=== PATIENT | female | born 1955 | race Caucasian/White ===

== ENCOUNTER 2017-02-20 12:32 | Emergency (ER) | payer BC ==
[2017-02-20 10:33] LABS: BASOPHILS 0.2 %; BASOPHILS ABSOLUTE 0.03 10/3/uL (0.0-0.16); EOSINOPHILS 1.1 %; EOSINOPHILS ABSOLUTE 0.14 10/3/uL (0.0-0.53); HEMATOCRIT 42.9 % (36.0-48.0); HEMOGLOBIN 14.7 g/dL (12.0-16.0); IMMATURE GRANULOCYTES 0.3 %; IMMATURE GRANULOCYTES ABSOLUTE 0.04 10/3/uL (0.0-0.11); LYMPHOCYTES 21.2 %; LYMPHOCYTES ABSOLUTE 2.63 10/3/uL (0.67-4.30); MEAN CORPUS HGB CONC 34.3 g/dL (32.0-36.0); MEAN CORPUSCULAR HEMOGLOB 30.4 pg (26.0-34.0); MEAN CORPUSCULAR VOLUME 88.6 fL (80-100); MEAN PLATELET VOLUME 11.7 fL (9.2-13.0); MONOCYTES 7.7 %; MONOCYTES ABSOLUTE 0.95 10/3/uL (0.21-1.20); NEUTROPHILS 69.5 %; NEUTROPHILS ABSOLUTE 8.61 10/3/uL (2.02-8.40); PLATELET COUNT 226 10/3/uL (150-400); RBC DISTRIBUTION WIDTH 14.5 % (12.0-16.0); RED CELL COUNT 4.84 10/6/uL (4.0-5.6)
[2017-02-20 10:35] LABS: ER CBC TAT 0 Hrs 08 Mins; MANUAL DIFF NO %; WHITE BLOOD CELLS 12.4 10/3/uL (4.5-10.5)
[2017-02-20 10:48] LABS: A/G RATIO 1.5 (0.7-1.9); ALBUMIN 4.4 G/DL (3.5-5.0); ALKALINE PHOSPHATASE 130 U/L (45-117); BUN (BLOOD UREA NITROGEN) 24 MG/DL (6-23); CALCIUM, SERUM 9.3 MG/DL (8.5-10.4); CHLORIDE, SERUM 109 MMOL/L (96-112); CO2 (CARBON DIOXIDE) 24 MMOL/L (24-34); CREATININE 1.34 MG/DL (0.55-1.02); GFR AFRICAN AMERICAN 50 ML/MIN (>=60); GFR NON AFRICAN AMERICAN 43 ML/MIN (>=60); GLUCOSE, SERUM 101 MG/DL (60-99); POTASSIUM, SERUM 3.8 MMOL/L (3.5-5.3); SGOT(AST) 18 U/L (5-40); SGPT(ALT) 22 U/L (5-65); SODIUM, SERUM 142 MMOL/L (135-148); TOTAL BILIRUBIN 0.5 MG/DL (0-1.2); TOTAL PROTEIN 7.4 G/DL (6.0-8.5)
[2017-02-20 11:02] LABS: TROPONIN I <0.02 NG/ML (<0.05)
[~2017-02-20 12:32] MED LIST: ASAB PO; ASABAYER PO; BUPROBAN150 MG PO; LIPITOR40 PO; LOP25 PO; TOPXL25 PO; ZOCOR40 PO
[2017-02-20 12:37] LABS: ASCORBIC ACID (UR NOT ORDER) NEG (NEG); BILIRUBIN, URINE NEGATIVE (NEG); ER URINALYSIS TAT 0 Hrs 13 Mins; KETONE, URINE NEGATIVE (NEG); LEUKOCYTE ESTERASE(NOT OR TRACE (NEG); NITRITE (URINE) NEG (NEG); WBC (NOT ORDERED) (RFLEX) 5 (0-5)
[2017-02-24] MEDS ORDERED: WELLSR150 PO (11:20)
[2017-02-24] MEDS ORDERED: NORV5 PO (11:21)
[2017-02-24] MEDS ORDERED: AVAPRO300 MG PO (11:21)
[2017-02-24] MEDS ORDERED: PLAVIX PO (11:22)
[2017-02-24] MEDS ORDERED: CRESTOR20 MG PO (11:22)
[2017-02-24] MEDS ORDERED: FLOMAX4 PO (11:23)
[2017-02-24] MEDS ORDERED: ZOFRAN4 PO (11:23)
[2017-02-24] MEDS ORDERED: PRILOSEC40 MG PO (11:24)
[2017-02-24] MEDS ORDERED: NORCO1 TAB PO (11:24)
[2017-02-24] MEDS ORDERED: BEN25 PO (11:25)
== END 2017-02-20 14:10 | disposition home or self-care (01) ==
LOC: ER 12:32
PROVIDERS: Hospitalist
DX: N13.2 Hydronephrosis with renal and ureteral calculous obstruction (principal); I10 Essential (primary) hypertension; Z95.5 Presence of coronary angioplasty implant and graft; Z88.8 Allergy status to other drugs, medicaments and biological substances; Z79.82 Long term (current) use of aspirin; Z79.899 Other long term (current) drug therapy
CPT/HCPCS: 74176; 80053; 81001; 83690; 84484; 85025; 93005; 96374; 99284; J1170; J2405

== ENCOUNTER 2017-02-27 12:38 | Day surgery (SDC) | payer BC ==
[2017-02-24 13:53] LABS: BASOPHILS 0.3 %; BASOPHILS ABSOLUTE 0.03 10/3/uL (0.0-0.16); EOSINOPHILS 1.9 %; EOSINOPHILS ABSOLUTE 0.17 10/3/uL (0.0-0.53); HEMATOCRIT 41.1 % (36.0-48.0); HEMOGLOBIN 13.7 g/dL (12.0-16.0); IMMATURE GRANULOCYTES 0.4 %; IMMATURE GRANULOCYTES ABSOLUTE 0.04 10/3/uL (0.0-0.11); LYMPHOCYTES 32.9 %; LYMPHOCYTES ABSOLUTE 2.99 10/3/uL (0.67-4.30); MANUAL DIFF NO %; MEAN CORPUS HGB CONC 33.3 g/dL (32.0-36.0); MEAN CORPUSCULAR HEMOGLOB 29.9 pg (26.0-34.0); MEAN CORPUSCULAR VOLUME 89.7 fL (80-100); MEAN PLATELET VOLUME 11.1 fL (9.2-13.0); MONOCYTES 7.7 %; NEUTROPHILS 56.8 %; NEUTROPHILS ABSOLUTE 5.16 10/3/uL (2.02-8.40); PLATELET COUNT 206 10/3/uL (150-400); RBC DISTRIBUTION WIDTH 14.3 % (12.0-16.0); RED CELL COUNT 4.58 10/6/uL (4.0-5.6); WHITE BLOOD CELLS 9.1 10/3/uL (4.5-10.5)
[2017-02-24 14:01] LABS: INTERNATIONAL NORMAL RATI 1.1 UNITS (-); PARTIAL THROMBO TIME 26.3 SEC (22.5-37.2); PROTIME (NOT ORD) 13.8 SEC (12.0-14.5)
[2017-02-24 14:13] LABS: BUN (BLOOD UREA NITROGEN) 19 MG/DL (6-23); CALCIUM, SERUM 8.8 MG/DL (8.5-10.4); CHLORIDE, SERUM 112 MMOL/L (96-112); CO2 (CARBON DIOXIDE) 24 MMOL/L (24-34); CREATININE 1.23 MG/DL (0.55-1.02); GFR AFRICAN AMERICAN 55 ML/MIN (>=60); GFR NON AFRICAN AMERICAN 48 ML/MIN (>=60); GLUCOSE, SERUM 115 MG/DL (60-99); POTASSIUM, SERUM 3.9 MMOL/L (3.5-5.3); SODIUM, SERUM 144 MMOL/L (135-148)
--- NOTE | ~2017-02-27 | OP ---
Record Of Operation [facility] [place] [address] [place]. [address] NAME: OLEKSANDR COHEN : 57 STATUS : [facility]#: [id number] AGE: 61 ADM/REG DATE : 02/27/17 MR#: [id number] REPORT SERV DATE: 02/28/17 DICTATED BY: GUANACO VERAS DATE: 02/27/17 REPORT STATUS : Draft TRANSCRIBED BY: MODL DATE: 02/27/17 DATE OF PROCEDURE: 02/27/2017 PREOPERATIVE DIAGNOSIS: Obstructing left mid ureteral stone. POSTOPERATIVE DIAGNOSIS: Obstructing left mid ureteral stone. PROCEDURE PERFORMED: Cystoscopy, left retrograde pyelogram, left flexible ureterorenoscopy, holmium laser stone fragmentation, and stent placement. SURGEON: Guanaco Veras M.D. ANESTHESIA: General. ESTIMATED BLOOD LOSS: 5 mL. INDICATIONS: This is a 61-year-old, white female, recently presenting to the office with intermittent left flank pain. She has been found to have an approximately 8 mm obstructing left mid ureteral calculus. After discussion of management options, we have elected to proceed with endoscopic fragmentation and stenting. Risks of infection, bleeding, failure, need for further surgery have been discussed. PROCEDURE IN DETAIL: The patient was taken to the operating room and underwent a general anesthetic. She was placed in a lithotomy position on the table, and her external genitalia were sterilely prepped and draped. The 22-Polish cystoscope sheath with 30-degree lens was inserted under direct vision per urethra with the aid of the video monitor. The bladder was inspected. The mucosa looked normal throughout. Single orifices were seen bilaterally. There was a very pronounced cystocele. The left orifice was cannulated with a bit of difficulty and a retrograde pyelogram was obtained showing a normal caliber ureter up to about the L3-4 level where stone was noted to be impacted and from this point proximal, the ureter was dilated, and the collecting system was moderately hydronephrotic. An 0.038 guidewire was advanced up into the kidney under fluoroscopic guidance, and an 11 x 13-Polish ureteral access sheath was advanced over the guidewire without difficulty up into the mid ureter. A second guidewire was placed through the access sheath and the sheath and obturator were then removed and reinserted over one of the two guidewires leaving the other in place as a safety wire. The flexible ureteroscope was then advanced up into the mid ureter through the access sheath. There was an obvious area where the stone had been impacted, and there was a bit of inflammatory change involving the ureteral mucosa. Proximal to this, the ureter was dilated. The scope was advanced up into the bladder, and a single large stone was noted in the mid pole calyx. The remainder of the collecting system and all the calices of the left kidney were inspected. There was one small stone adherent to the wall of the lower pole calyx which was broken loose. The 200 micron laser fiber was then used to fragment the single large stone into many small fragments in the 1 to 2 mm range or smaller. Reinspection of the collecting system did not reveal any large fragments remaining. At that point, the flexible scope was withdrawn down through the ureter with no significant findings noted. The cystoscope was replaced over the guidewire and a 6-Polish x Record Of Operation [address] [place]. [address] NAME: OLEKSANDR COHEN : 57 STATUS : [facility]#: [id number] AGE: 61 ADM/REG DATE : 02/27/17 MR#: [id number] REPORT SERV DATE: 02/28/17 DICTATED BY: GUANACO VERAS DATE: 02/27/17 REPORT STATUS : Draft TRANSCRIBED BY: YESSY DATE: 02/27/17 28 cm Pillow stent was placed over the guidewire and advanced up into the kidney such that the proximal end of the stent was observed to coil in the pelvis of the kidney under fluoroscopic guidance, and the distal end of the stent was visually observed to coil in the bladder following removal of the guidewire. The stent was left connected to a string dangle which was taped to the patient's inner thigh. The bladder was drained. All endoscopic apparatus was removed. The patient was taken to recovery in stable condition. DARBY/YESSY Guanaco Veras M.D. / [id number] CC: Dexter Johnson M.D.
[~2017-02-27 12:38] MED LIST changes: +AVAPRO300 MG PO; +BEN25 PO; +CRESTOR20 MG PO; +FLOMAX4 PO; +NORCO1 TAB PO; +NORV5 PO; +PLAVIX PO; +PRILOSEC40 MG PO; +WELLSR150 PO; +ZOFRAN4 PO
== END 2017-02-27 19:12 | disposition home or self-care (01) ==
LOC: SDC 12:38
PROVIDERS: Urology
PROC: 0T778DZ Dilation of Left Ureter with Intraluminal Device, Via Natural or Artificial Opening Endoscopic (ICD-10-PCS; 2017-02-27)
PROC: BT1F1ZZ Fluoroscopy of Left Kidney, Ureter and Bladder using Low Osmolar Contrast (ICD-10-PCS; 2017-02-27)
PROC: 0TF78ZZ Fragmentation in Left Ureter, Via Natural or Artificial Opening Endoscopic (ICD-10-PCS; principal; 2017-02-27 14:15)
DX: N13.2 Hydronephrosis with renal and ureteral calculous obstruction (principal); N13.4 Hydroureter; N81.10 Cystocele, unspecified; I25.10 Atherosclerotic heart disease of native coronary artery without angina pectoris; I10 Essential (primary) hypertension; I73.9 Peripheral vascular disease, unspecified; Z95.5 Presence of coronary angioplasty implant and graft; Z95.820 Peripheral vascular angioplasty status with implants and grafts; Z88.5 Allergy status to narcotic agent
CPT/HCPCS: 71020; 74420; 80048; 85025; 85610; 85730; 93005; A9270-GY; C1758; C2617; J2250; J2370; J2405; J2710; J3010; Q9967